=== PATIENT | male | born 1980 ===

== ENCOUNTER 2021-06-19 14:42 | Emergency (ER) | payer SELFPAY ==
[2021-06-19 15:05] VITALS: BP 189/95; PULSE 93; RESP 18; TEMP 36.1; O2SAT 96; BMI 35.0
--- NOTE | 2021-06-19 16:27 | ED_ITS ---
HPI - Abdominal Pain General: Chief Complaint: Abdominal Pain Stated Complaint: Severe ABD Pain Time Seen by Provider: 06/19/21 16:26 History of Present Illness: Mr. Cruz is a 41-year-old gentleman without significant past medical history presents to the emergency department due to ab dominal pain. Symptoms of been ongoing since last night. He endorses lower abdominal cramping which has occurred intermittently though at baseline has not gone completely away for pain. When cramping he has severe intensity pain. He notes a feeling of incomplete emptying though has had bowel movements. Denies urinary symptoms. Has had nausea but no vomiting. Has had subjective chills. No other focal infectious symptoms. Denies frequent episodes of similar in the past. No other specific changes in health, exacerbating, or alleviating factors identified. Onset (ago): hour(s) Pain Consistency: constant Severity: moderate Quality: cramping Exacerbating factors: eating Associated Symptoms: Reports nausea Review of Systems General: Reports: 10 or more systems reviewed and unremarkable except in HPI and below GI: Reports: nausea PFSH ED PFSH: Medical History (Updated 06/19/21 @ 19:04 by Tacos Riley MD) No significant past medical history Surgical History (Updated 06/19/21 @ 18:04 by Tacos Riley MD) No significant past surgical history Social History (Updated 06/19/21 @ 18:04 by Tacos Riley MD) Alcohol intake: current Alcohol intake frequency: few times a month Physical Exam Const: COMMON NORMALS: alert GENERAL APPEARANCE: cooperative and well developed HENMT: COMMON NORMALS: normocephalic and atraumatic HEAD & SCALP: normocephalic and atraumatic THROAT: posterior oropharynx normal Eye: COMMON NORMALS: conjunctivae normal CONJUNCTIVA: Yes conjunctivae normal SCLERA: sclerae normal Neck/C-Spine: COMMON NORMALS: supple GENERAL: Yes trachea midline Resp: COMMON NORMALS: normal respiratory effort EFFORT & INSPECTION: Yes able to speak in complete sentences Cardio: COMMON NORMALS: regular rate and regular rhythm RATE: regular rate RHYTHM: regular rhythm GI: COMMON NORMALS: Soft to palpation PALPATION: Yes Soft to palpation, Yes Tenderness to palpation present (GI), No Guarding due to palpation present (GI) and No Rigid due to palpation PERCUSSION: normal to percussion Extremity: GENERAL: Yes normal exam except as noted and No edema Neuro: COMMON NORMALS: moves all extremities SENSORIUM/ORIENTATION: Yes alert and No Orientation impaired Psych: COMMON NORMALS: mental status grossly normal and Normal thought process present THOUGHT PROCESS: Normal thought process present Course ED course: - Patient was seen and evaluated by me at bedside - Patient placed on cardiac monitors, IV access obtained - Initial evaluation notable for exam as above - Labs personally interpreted by me -Symptom treatment ordered - Labs notable for leukocytosis and hemoconcentration with evidence of dehydration, lipase is elevated. - Imaging notable for diverticulitis. Antibiotics ordered. - Upon serial reexamination after treatment the patient was improved with symptom treatment. - Based on patient history, evaluation, and testing as interpreted the most likely cause of the patient's condition is diverticulitis - The results of ED evaluation were discussed with the patient including disposition options. I offered the patient admission versus trial of treatment at home with strict return precautions. Patient desires trial at home. I discussed prescriptions and/or symptomatic cares (if applicable) including appropriate and responsible use, followup plan, and return precautions. The patient verbalized understanding and felt safe for discharge. - Patient discharged in satisfactory condition. Note: Click bubbles or prepopulated oliver in note writing are used for assistance with data collection and billing and are inherently more limited than narrative and other text portions of this note. Please use narrative for additional clinic al history and defer to narrative/free test for any case of contradictory information. If information appears in only free text or click bubble it should be considered present or absent as reported. Please contact note typewriter repairer for clarifications of clinical information or contradictory information. MDM is a brief summary, contradictory or erroneous seeming information should be clarified and full note should be reviewed. Vital Signs: Vital signs: Vital Signs Temperature 97.0 F L 06/19/21 15:05 Pulse Rate 100 06/19/21 19:16 Respiratory Rate 20 H 06/19/21 19:16 Blood Pressure 157/103 06/19/21 19:16 Pulse Oximetry 98 06/19/21 19:16 MDM - Abdominal Pain Medical Decision Making 41-year-old male presenting with abdominal pain. Found to have diverticulitis and dehydration. Improved with symptom treatment and able to tolerate p.o. intake. Offered admission versus outpatient treatment, patient elected for outpatient treatment with strict return precautions. Satisfactory for discharge. Medical Records I reviewed the patient's medical records. Lab Data I reviewed the patient's lab results. : 06/19/21 16:35 06/19/21 16:35 Labs/Radiology: Radiology Impressions Abdomen/Pelvis CT 06/19/21 16:34 IMPRESSION: Diffuse sigmoid colon wall thickening suggestive of a colitis or long segment diverticulitis. Laboratory Results WBC 18.7 10^3/uL (4.0-10.0) H 06/19/21 16:35 RBC 5.69 10^6/uL (4.1-5.3) H 06/19/21 16:35 Hgb 17.2 g/dL (11.7-16.6) H 06/19/21 16:35 Hct 49.0 % (42.0-52.0) 06/19/21 16:35 MCV 86.1 fl (80-94) 06/19/21 16:35 MCH 30.2 pg (28.0-34.0) 06/19/21 16:35 MCHC 35.1 g/dL (30.0-36.0) 06/19/21 16:35 RDW 12.4 % (12.1-15.1) 06/19/21 16:35 Plt Count 228 10^3/cmm (130-400) 06/19/21 16:35 MPV 10.2 fL (7.4-10.4) 06/19/21 16:35 Neut % (Auto) 90.0 % 06/19/21 16:35 Lymph % (Auto) 5.4 % 06/19/21 16:35 [place] % (Auto) 3.8 % 06/19/21 16:35 Eos % (Auto) 0.1 % 06/19/21 16:35 Baso % (Auto) 0.2 % 06/19/21 16:35 Neut # (Auto) 16.80 10^3/uL (1.8-7.7) H 06/19/21 16:35 Lymph # (Auto) 1.0 10^3/uL (0.8-4.8) 06/19/21 16:35 [place] # (Auto) 0.7 10^3/uL (0.2-0.9) 06/19/21 16:35 Eos # (Auto) 0.0 10^3/uL (0.0-0.8) 06/19/21 16:35 Baso # (Auto) 0.0 10^3/uL (0.0-0.1) 06/19/21 16:35 Nucleated RBC % (auto) 0 % 06/19/21 16:35 Nucleated RBCs # 0.0 /100WBC 06/19/21 16:35 Sodium 132 mmol/L (136-145) L 06/19/21 16:35 Potassium 3.9 mmol/L (3.5-5.1) 06/19/21 16:35 Chloride 97 mmol/L (98-107) L 06/19/21 16:35 Carbon Dioxide 24 mmol/L (22-29) 06/19/21 16:35 Anion Gap 14.9 (5-19) 06/19/21 16:35 BUN 11 mg/dL (6-20) 06/19/21 16:35 Creatinine 0.6 mg/dL (0.7-1.2) L 06/19/21 16:35 GFR Calculation 149.2 mL/min (90-130) H 06/19/21 16:35 Glucose 119 mg/dL (65-115) H 06/19/21 16:35 Calculated Osmolality 275 mOsm/kg (285-295) L 06/19/21 16:35 Lactic Acid 0.8 mmol/L (0.5-2.2) 06/19/21 18:22 Calcium 10.2 mg/dL (8.5-10.5) 06/19/21 16:35 Total Bilirubin 0.6 mg/dL (0.15-1.2) 06/19/21 16:35 AST 15 U/L (0-40) 06/19/21 16:35 ALT 10 U/L (0-41) 06/19/21 16:35 Alkaline Phosphatase 70 IU/L (40-130) 06/19/21 16:35 Total Protein 7.9 g/dL (6.6-8.7) 06/19/21 16:35 Albumin 4.5 g/dL (3.5-5.2) 06/19/21 16:35 Globulin 3.4 g/dL (1.3-4.6) 06/19/21 16:35 Lipase 460 U/L (13-60) H 06/19/21 16:35 Urine Color Colorless (Yellow) 06/19/21 17:25 Urine Appearance Clear (CLEAR) 06/19/21 17:25 Urine pH 6 (5-7) 06/19/21 17:25 Ur Specific [place] 1.010 (1.005-1.030) 06/19/21 17:25 Urine Protein Neg (Negative) 06/19/21 17:25 Urine Glucose (UA) Norm (Normal) 06/19/21 17:25 Urine Ketones 1+ (Negative) H 06/19/21 17:25 Urine Blood Neg (Negative) 06/19/21 17:25 Urine Nitrate Negative (Negative) 06/19/21 17:25 Urine Bilirubin Neg (Negative) 06/19/21 17:25 Urine Urobilinogen Norm mg/dL (Negative) 06/19/21 17:25 Ur Leukocyte Esterase Negative (Negative) 06/19/21 17:25 Discharge Plan Discharge Patient Disposition: Home Clinical Impression: Diverticulitis, Elevated lipase, Dehydration, Leukocytosis Condition: Stable Prescriptions: New Cipro 500 mg tablet 500 mg PO BID Qty: 14 0RF metronidazole 500 mg tablet 500 mg PO Q8H 7 Days Qty: 21 0RF oxycodone 5 mg tablet 5 mg PO Q6H PRN (Reason: pain) Qty: 10 0RF Discharge Orders: Discharge ED (Routine); Ordered 06/19/21 Ordered By: Tacos Riley Discharge Diet: Advance as tolerated and Clear Liquid Discharge Activity: Increase activity as tolerated Patient Instructions: Diverticulitis (ED), Diverticulitis Diet (ED), Opioid Safety Activity Restrictions/Additional Instructions: Thank you for visiting the emergency department. You were seen evaluated for abdominal pain. You were found to have diverticulitis which is infection of the colon. This will be treated with antibiotics. Additionally he will be given nausea medication as well as pain medication. You may use Tylenol and ibuprofen. Please follow-up with your primary care provider. Please establish with a primary care provider if you do not currently have 1. Please return to the emergency department for worsening symptoms, uncontrolled symptoms despite medications, fevers, or anything else that you are concerned about and feel needs emergency department evaluation. Coding Level of Care Code ED Venetian Blind Cleaner for Joshua Fwd Exam Comprehensive
--- NOTE | 2021-06-19 16:34 | CTR_ITS ---
PROCEDURE INFORMATION: Exam: CT Abdomen And Pelvis With Contrast Exam date and time: 06/19/2021 5:00 PM Age: 41 years old Clinical indication: Acute; Patient HX: Suprapubic abdominal pain with nausea; Additional info: Abdominal pain, lower bilateral, ? obstruction TECHNIQUE: Imaging protocol: Computed tomography of the abdomen and pelvis with contrast. Radiation optimization: All CT scans at this facility use at least one of these dose optimization techniques: automated exposure control; mA and/or kV adjustment per patient size (includes targeted exams where dose is matched to clinical indication); or iterative reconstruction. Contrast material: OMNI 350; Contrast volume: 100 ml; Contrast route: INTRAVENOUS (IV); COMPARISON: No relevant prior studies available. RADIATION DOSE METRICS: Total DLP (mGy-cm): 1987.31 FINDINGS: Liver: Normal. No mass. Gallbladder and bile ducts: Normal. No calcified stones. No ductal dilation. Pancreas: Normal. No ductal dilation. Spleen: Normal. No splenomegaly. Adrenal glands: Normal. No mass. Kidneys and ureters: Normal. No hydronephrosis. Stomach and bowel: Diffuse sigmoid colon wall thickening with surrounding edema suggestive of a colitis or long segment diverticulitis. Appendix: No evidence of appendicitis. Intraperitoneal space: Unremarkable. No free air. No significant fluid collection. Vasculature: Unremarkable. No abdominal aortic aneurysm. Lymph nodes: Unremarkable. No enlarged lymph nodes. Urinary bladder: Unremarkable as visualized. Reproductive: Unremarkable as visualized. Bones/joints: Unremarkable. No acute fracture. Soft tissues: Unremarkable. CT/CT abdomen pelvis w con* [id number] IMPRESSION: Diffuse sigmoid colon wall thickening suggestive of a colitis or long segment diverticulitis.
[2021-06-19 16:41] VITALS: RESP 18; O2SAT 98
[2021-06-19] MEDS: morphine 4 mg/mL SDV 1 mL IM (16:41)
[2021-06-19 16:43] LABS: Basophils % 0.2 %; Eosinophils % 0.1 %; Hemoglobin 17.2 g/dL (11.7-16.6); Lymphocytes % 5.4 %; Mean Corpuscular HGB Conc 35.1 g/dL (30.0-36.0); Mean Corpuscular Hemoglobin 30.2 pg (28.0-34.0); Mean Corpuscular Volume 86.1 fl (80-94); Mean Platelet Volume 10.2 fL (7.4-10.4); Monocytes # 0.7 10^3/uL (0.2-0.9); Monocytes % 3.8 %; Nucleated Red Blood Cells % 0 %; Platelet Count 228 10^3/cmm (130-400); Red Blood Count 5.69 10^6/uL (4.1-5.3); Red Cell Distribution Width 12.4 % (12.1-15.1); White Blood Count 18.7 10^3/uL (4.0-10.0)
[2021-06-19 17:07] VITALS: BP 161/81; PULSE 100; RESP 22; O2SAT 99
[2021-06-19 17:09] LABS: Alanine Aminotransferase 10 U/L (0-41); Albumin Level 4.5 g/dL (3.5-5.2); Alkaline Phosphatase 70 IU/L (40-130); Anion Gap 14.9 (5-19); Aspartate Amino Transferase 15 U/L (0-40); Blood Urea Nitrogen 11 mg/dL (6-20); Calcium 10.2 mg/dL (8.5-10.5); Carbon Dioxide 24 mmol/L (22-29); Chloride 97 mmol/L (98-107); Globulin 3.4 g/dL (1.3-4.6); Glomerular Filtration Rate 149.2 mL/min (90-130); Glucose 119 mg/dL (65-115); Osmolality Calculated 275 mOsm/kg (285-295); Potassium 3.9 mmol/L (3.5-5.1); Sodium 132 mmol/L (136-145); Total Bilirubin 0.6 mg/dL (0.15-1.2); Total Protein 7.9 g/dL (6.6-8.7)
[2021-06-19 17:17] LABS: Lipase 460 U/L (13-60)
[2021-06-19 17:30] VITALS: BP 155/79; PULSE 79; RESP 18; O2SAT 96
[2021-06-19 17:51] LABS: Add Urine Microscopic? NO; Charge for UA Resulting for Rev
[2021-06-19 17:54] LABS: Bilirubin Urine Neg (Negative); Blood Urine Neg (Negative); Glucose Urine UA Norm (Normal); Ketones Urine 1+ (Negative); Leukocyte Esterase Urine Negative (Negative); Nitrate Urine Negative (Negative); Protein Urine Neg (Negative); Urine Appearance Clear (CLEAR); Urine Color Colorless (Yellow); Urobilinogen Urine Norm (Negative); pH Urine 6 (5-7)
[2021-06-19] MEDS: sodium chloride 0.9% 1,000 ML 999 ML IV (18:07)
[2021-06-19 18:15] VITALS: RESP 18; O2SAT 96
[2021-06-19] MEDS: morphine 4 mg/mL SDV 1 mL IVP (18:15)
[2021-06-19 18:47] LABS: Lactic Sepsis W/Reflex 0.8 mmol/L (0.5-2.2)
[2021-06-19] MEDS: ciprofloxacin 500 mg Tablet PO (19:07)
[2021-06-19] MEDS: metroNIDAZOLE 500 MG Tablet PO (19:07)
[2021-06-19 19:16] VITALS: BP 157/103; PULSE 100; RESP 20; O2SAT 98
== END 2021-06-19 19:17 | disposition home or self-care (01) ==
PROVIDERS: Emergency Provider Emergency Medicine
DX: K57.90 Diverticulosis of intestine, part unspecified, without perforation or abscess without bleeding (principal); E86.0 Dehydration; D72.829 Elevated white blood cell count, unspecified
CPT/HCPCS: 74177; 80053; 81003; 83605; 83690; 85025; 96361; 96374; 99284; J2270; J7030; Q9967

== ENCOUNTER 2023-03-04 17:16 | Emergency (ER) | payer SELFPAY ==
[2023-03-04] VITALS (33 sets, daily range): BP systolic 94–160; BP diastolic 56–107; PULSE 85–153; RESP 11–33; TEMP 36.5; O2SAT 68–100; BMI 37.8
--- NOTE | 2023-03-04 17:22 | XRR_ITS ---
PROCEDURE INFORMATION: Exam: XR Chest Exam date and time: 03/04/2023 5:32 PM Age: 42 years old Clinical indication: Shortness of breath; Additional info: SOB TECHNIQUE: Imaging protocol: Radiologic exam of the chest. Views: 1 view. COMPARISON: CT abdomen pelvis w con* [id number] 06/19/2021 5:00 PM FINDINGS: Lungs: Unremarkable. No consolidation. Pleural spaces: Unremarkable. No pleural effusion. No pneumothorax. Heart/Mediastinum: Unremarkable. No cardiomegaly. Bones/joints: Unremarkable. XR/XR chest 1V portable [id number] IMPRESSION: No acute findings.
--- NOTE | 2023-03-04 17:40 | ED_ITS ---
HPI - Allergic Reaction 2 General: Chief complaint: Allergic Reaction Stated complaint: Sob Time Seen by Provider: 03/04/23 17:21 Source: patient Mode of arrival: ambulatory Limitations: no limitations History of Present Illness: HPI narrative: 42-year-old male states he smoked cigare ttes today at noon he states that since then he has had feelings like his throat is coming off and increasing shortness of breath. Does have muffled voice here states that if he turns his head left or right he feels like he has a very hard time breathing. He denies any chest pain denies any cough or fever. Associated symptoms: Deny abdominal pain, nausea or vomiting Review of Systems 2 Const: Denies: fever(s), chills, body aches or change in appetite ENMT: Reports: throat pain; Denies: dental pain Card: Denies: chest pain Resp: Reports: dyspnea GI: Denies: abdominal pain, nausea, vomiting or diarrhea Musc: Denies: neck pain or back pain Skin/Breast: Denies: rash Neuro: Denies: headache(s) PFSH ED 2 PFSH: Medical History No significant past medical history Surgical History No significant past surgical history Social History Alcohol intake: current Alcohol intake frequency: few times a month Physical Exam 2 Const: COMMON NORMALS: patient oriented x3 GENERAL APPEARANCE: in distress HENMT: COMMON NORMALS: normocephalic and atraumatic HEAD & SCALP: n ormocephalic and atraumatic OTHER: Bilateral swelling posterior oropharynx with slight dyspnea and muffled voice Neck/C-Spine: COMMON NORMALS: full ROM and supple Chest: COMMONS NORMALS: normal inspection of the chest Resp: COMMON NORMALS: normal respiratory effort, No retractions, No use of accessory muscles and clear to auscultation bilaterally AUSCULTATION: clear to auscultation bilaterally Cardio: COMMON NORMALS: regular rate, regular rhythm and No murmurs present (Cardio) RATE: regular rate RHYTHM: regular rhythm Extremity: COMMON NORMALS: normal to inspection and full ROM Neuro: COMMON NORMALS: patient oriented x3, moves all extremities and no focal motor deficits Psych: COMMON NORMALS: mental status grossly normal, Normal thought process present and cooperative THOUGHT PROCESS: Normal thought process present Skin: COMMON NORMALS: no rashes or lesions noted and no wounds GENERAL SKIN EXAM: no rashes or lesions noted Procedures Chest Tube Chest Tube 1: Chest Tube Location: right, anterior axillary line and fifth interspace Size of Tube (cm): 24 Chest Tube Prep: Yes betadine prep and sterile drapes applied Local Anesthetic: lidocaine 1% Amount of anesthesia used (mL): 8 Incision Made With: #10 blade Post Procedure: sutured to skin and sterile dressing applied Tube Drainage: none Post Procedure CXR?: Yes Patient Tolerated Procedure: Yes Intubation Time out performed: Yes sedative: Etomidate Mg Given: 20 paralytic: Succinylcholine Mg Given: 150 Laryngoscope: Wilbur Intubation Complications: unable to intubate Additional Comments: Unable animate patient due to mass epiglottis not able to visualize. Patient desaturated to 50% did place an LMA down was able to bag him back up to 100% an incision was made for a possible chronic is a very large neck and did not attempt to fully cry because he did came back up to 100% Course 2 Reevaluation(s): Reevaluation #1: Was not able to intubate patient due to the epiglottic mass. Was able to ventilate the patient with an LMA spoke to Dr. Rome along with anesthesia will take patient to the operating room for surgical airway Time: 20:07 Vital Signs: Vital signs: Vital Signs Temperature 97.7 F 03/04/23 17:19 Pulse Rate 108 H 03/04/23 20:31 Respiratory Rate 29 H 03/04/23 22:28 Blood Pressure 113/83 03/04/23 20:31 Pulse Oximetry 100 03/04/23 20:31 Oxygen Delivery Me thod Room Air 03/04/23 19:30 Fraction of Inspir ed Oxygen 100 03/04/23 22:28 MDM - Allergic Reaction Medical Decision Making Patient originally presented here with throat pain difficulty swallowing shortness of breath. Patient CT did show a likely retropharyngeal abscess attempted to intubate him in the ER was not able to visualize the cords into him having to place an LMA and bag valve ventilated him through the LMA patient was taken to the OR for surgical tracheostomy. When patient arrived back from the operating room he had had a right-sided pneumothorax did place a chest tube. I did speak to Magana will transfer there for higher level of care for ENT and ICU Availibilty Medical Records I reviewed the patient's medical records. Lab Data I reviewed the patient's lab results. 03/04/23 19:37 03/04/23 19:[address] 03/04/23 18:23 IMPRESSION: 1. 2.9 cm low-density masslike enlargement to the right aspect of the epiglottis with effacement of the right vallecula and involvement of the right pharyngeal wall, finding may reflect an underlying malignant or infectious process, correlation with direct visualization advised. 2. Small to moderate amount of nonlocalized edema in the retropharyngeal space, may reflect an infectious process. 3. Diffuse subcutaneous edema throughout the neck, nonspecific. Laboratory Results WBC 15.81 10^3/uL (3.29-11.43) H 03/04/23 19:37 RBC 5.61 10^6/uL (3.85-5.65) 03/04/23 19:37 Hgb 16.80 g/dL (11.27-16.99) 03/04/23 19:37 Hct 49.3 % (37-53) 03/04/23 19:37 MCV 87.9 fl (82-101) 03/04/23 19:37 MCH 29.9 pg (27-33) 03/04/23 19:37 MCHC 34.1 g/dL (30-55) 03/04/23 19:37 RDW 12.1 % (12.1-15.1) 03/04/23 19:37 Plt Count 240 10^3/cmm (157-399) 03/04/23 19:37 MPV 10.3 fL (7.4-10.4) 03/04/23 19:37 Neut % (Auto) 87.6 % 03/04/23 19:37 Lymph % (Auto) 9.0 % 03/04/23 19:37 [place] % (Auto) 2.6 % 03/04/23 19:37 Eos % (Auto) 0.1 % 03/04/23 19:37 Baso % (Auto) 0.2 % 03/04/23 19:37 Neut # (Auto) 13.85 10^3/uL (1.8-7.7) H 03/04/23 19:37 Lymph # (Auto) 1.4 10^3/uL (0.8-4.8) 03/04/23 19:37 Young # (Auto) 0.4 10^3/uL (0.2-0.9) 03/04/23 19:37 Eos # (Auto) 0.0 10^3/uL (0.0-0.8) 03/04/23 19:37 Baso # (Auto) 0.0 10^3/uL (0.0-0.1) 03/04/23 19:37 Nucleated RBC % (auto) 0 % 03/04/23 19:37 Nucleated RBCs # 0.0 /100WBC 03/04/23 19:37 Sodium 137 mmol/L (136-145) 03/04/23 19:37 Potassium 4.4 mmol/L (3.5-5.1) 03/04/23 19:37 Chloride 102 mmol/L (98-107) 03/04/23 19:37 Carbon Dioxide 24 mmol/L (22-29) 03/04/23 19:37 Anion Gap 15.4 (5-19) 03/04/23 19:37 BUN 14 mg/dL (6-20) 03/04/23 19:37 Creatinine 0.8 mg/dL (0.7-1.2) 03/04/23 19:37 GFR Calculation 106.5 mL/min (90-130) 03/04/23 19:37 Glucose 148 mg/dL (65-115) H 03/04/23 19:37 Calculated Osmolality 287 mOsm/kg (285-295) 03/04/23 19:37 Calcium 8.8 mg/dL (8.5-10.5) 03/04/23 19:37 Total Bilirubin 0.5 mg/dL (0.15-1.2) 03/04/23 19:37 AST 20 U/L (0-40) 03/04/23 19:37 ALT 13 U/L (0-41) 03/04/23 19:37 Alkaline Phosphatase 66 U/L (40-130) 03/04/23 19:37 Total Protein 7.2 g/dL (6.6-8.7) 03/04/23 19:37 Albumin 4.1 g/dL (3.5-5.2) 03/04/23 19:37 Globulin 3.1 g/dL (1.3-4.6) 03/04/23 19:37 XR interpretation done by ED provider, pending radiology final review Critical Care Time 2 Critical Care Time: Critical Care Time: Yes Total Critical Care Time: 55 Attestation: The high probability of a clinically significant, sudden or life threatening deterioration of the patient's resp system(s) required my full and direct attention, intervention and personal management. The critical care time is as shown. This time is in addition to time spent performing any reported procedures but includes the following: [x] Data and vital sign review and interpretation [x] Patient assessment, examination and intervention [x] Documentation [x] Medication orders and management Discharge Plan Discharge Patient Disposition: Xfer Short-Term Hosp Clinical Impression: Abscess, retropharyngeal Condition: Stable Coding Level of Care Code ED Mixing Machine Tender Cork Rod for Joshua Cantu
[2023-03-04] MEDS: EPINEPHrine 1 mg/mL INJ 0.5 MG IM (17:43)
[2023-03-04] MEDS: diphenhydrAMINE 50 mg/mL SDV 1mL IVP (17:44)
[2023-03-04] MEDS: methylPREDNISolone sod succ 125 mg/2 mL INJ IVP (17:44)
[2023-03-04] MEDS: racepinephrine 0.5 mL Neb INHALATION (17:59)
--- NOTE | 2023-03-04 18:23 | CTR_ITS ---
PROCEDURE INFORMATION: Exam: CT Neck With Contrast Exam date and time: 03/04/2023 6:39 PM Age: 42 years old Clinical indication: Dyspnea / difficulty breathing; Additional info: Difficult swallowing TECHNIQUE: Imaging protocol: Computed tomography of the neck with contrast. Radiation optimization: All CT scans at this facility use at least one of these dose optimization techniques: automated exposure control; mA and/or kV adjustment per patient size (includes targeted exams where dose is matched to clinical indication); or iterative reconstruction. Contrast material: OMNI 350; Contrast volume: 100 ml; Contrast route: INTRAVENOUS (IV); COMPARISON: CR (CHEST, ) 03/04/2023 5:32 PM RADIATION DOSE METRICS: Total DLP (mGy-cm): 298 FINDINGS: Pharynx: 2.9 cm low-density masslike enlargement to the right aspect of the epiglottis with effacement of the right vallecula and involvement of the right pharyngeal wall, finding may reflect an underlying malignant or infectious process, correlation with direct visualization advised. Larynx: Unremarkable. Epiglottis is normal. Prevertebral and retropharyngeal spaces: Small to moderate amount of nonlocalized edema in the retropharyngeal space, may reflect an infectious process. Salivary glands: Normal. Glands are normal in size. Thyroid: Normal. No enlarged or calcified nodules. Lymph nodes: Unremarkable. No lymphadenopathy. Trachea: Visualized trachea is unremarkable. Lungs: Unremarkable as visualized. Bones/joints: Unremarkable. No acute fracture. Soft tissues: Diffuse subcutaneous edema throughout the neck, nonspecific. CT/CT neck w con* [id number] IMPRESSION: 1. 2.9 cm low-density masslike enlargement to the right aspect of the epiglottis with effacement of the right vallecula and involvement of the right pharyngeal wall, finding may reflect an underlying malignant or infectious process, correlation with direct visualization advised. 2. Small to moderate amount of nonlocalized edema in the retropharyngeal space, may reflect an infectious process. 3. Diffuse subcutaneous edema throughout the neck, nonspecific.
[2023-03-04] MEDS: iohexol 350 mg/mL 500 mL Btl (per mL) IV (18:30)
[2023-03-04] MEDS: LORazepam 2 mg/mL INJ 10 mL MDV 1 MG IVP (18:38)
--- NOTE | 2023-03-04 18:49 | PC.NURSE ---
REPORT TAKEN FROM VELASQUEZ PRICE AT THIS TIME.
[2023-03-04] MEDS: dexamethasone 10 mg/mL INJ IVP (19:01)
[2023-03-04 19:44] LABS: Basophils % 0.2 %; Eosinophils % 0.1 %; Hematocrit 49.3 % (37-53); Lymphocytes # 1.4 10^3/uL (0.8-4.8); Mean Corpuscular HGB Conc 34.1 g/dL (30-55); Mean Corpuscular Hemoglobin 29.9 pg (27-33); Mean Corpuscular Volume 87.9 fl (82-101); Mean Platelet Volume 10.3 fL (7.4-10.4); Monocytes # 0.4 10^3/uL (0.2-0.9); Monocytes % 2.6 %; Neutrophils # 13.85 10^3/uL (1.8-7.7); Neutrophils % 87.6 %; Nucleated Red Blood Cells % 0 %; Platelet Count 240 10^3/cmm (157-399); Red Blood Count 5.61 10^6/uL (3.85-5.65); Red Cell Distribution Width 12.1 % (12.1-15.1); White Blood Count 15.81 10^3/uL (3.29-11.43)
[2023-03-04] MEDS: etomidate 2 mg/mL INJ SDV 10 mL 20 MG IVP (19:47)
[2023-03-04] MEDS: succinylcholine 20 mg/mL SDV 10mL 150 MG IVP (19:48)
[2023-03-04 20:14] LABS: Alanine Aminotransferase 13 U/L (0-41); Albumin Level 4.1 g/dL (3.5-5.2); Alkaline Phosphatase 66 U/L (40-130); Aspartate Amino Transferase 20 U/L (0-40); Blood Urea Nitrogen 14 mg/dL (6-20); Calcium 8.8 mg/dL (8.5-10.5); Carbon Dioxide 24 mmol/L (22-29); Chloride 102 mmol/L (98-107); Globulin 3.1 g/dL (1.3-4.6); Glomerular Filtration Rate 106.5 mL/min (90-130); Glucose 148 mg/dL (65-115); Osmolality Calculated 287 mOsm/kg (285-295); Sodium 137 mmol/L (136-145); Total Bilirubin 0.5 mg/dL (0.15-1.2); Total Protein 7.2 g/dL (6.6-8.7)
[2023-03-04] MEDS: sodium chloride 0.9% 1,000 ML 999 ML IV (20:14)
[2023-03-04] MEDS: clindamycin 900 MG/50 ML PREMIX 100 MG IV (20:14)
[2023-03-04] MEDS: propofol 10 mg/mL SDV 20 mL 60 MG IVP ×2 (20:15→20:29)
[2023-03-04 20:16] LABS: Anion Gap 15.4 (5-19); Potassium 4.4 mmol/L (3.5-5.1)
--- NOTE | 2023-03-04 20:28 | PM.OP ---
Operative Report Date of procedure: March 04, 2023 Pre-op diagnosis: Airway obstruction Surgeon: Rhys Burnham MD
--- NOTE | 2023-03-04 20:29 | P.CONIM_ITS ---
Providers/Reason For Consult 2 Consulting Physician/Specialty*: Dr. Rhys Burnham MD Otolaryngology, Head & Neck Surgery Reason for Consult*: Airway obstruction Requesting Physician: Dr. Cherise MD Primary Care Provider: None known History of Present Illness History of Present Illness Niko Cruz is a 42 year old male who c/o a muffled voice since noon today. The patient had an attempt at intubation and a surgical airway that failed and is now being ventilated with an LMA - no other history is available or obtainable/there is no family present. Review of Systems 2 General: Reports: 10 or more systems reviewed and unremarkable except in HPI and below Const: Reports: other (No symptoms known.) Eyes: Reports: other (No h/o c/po) ENMT: Reports: other (Horizontal incision in the anterior neck just superior to the sternal notch) Medications/Allergies Home Medications Medication Instructions Recorded Confirmed Last Taken Type ciprofloxacin HCl 500 mg tablet 500 mg PO BID #14 tabs 06/19/21 Unknown Rx (Cipro) oxycodone 5 mg tablet 5 mg PO Q6H PRN pain #10 tabs 06/19/21 Unknown Rx Allergies Allergy/AdvReac Type Severity Reaction Status Date / Time No Known Allergies Allergy Verified 03/04/23 17:19 Current Medications Generic Name Dose Route Start Last Admin Trade Name Freq PRN Reason Stop Dose Admin Sodium Chloride 1,000 mls @ 999 mls/hr 03/04/23 20:04 03/04/23 20:14 Sodium Chloride 0.9% IV 03/04/23 21:04 999 mls/hr .Q1H1M ONE Administration PFSH Acute 2 PFSH: Medical History No significant past medical history Surgical History No significant past surgical history Social History Alcohol intake: current Alcohol intake frequency: few times a month Vitals/I&O/Wt Last Vital Signs Temp 97.7 F 03/04/23 17:19 Pulse 102 H 03/04/23 20:10 Resp 18 03/04/23 20:10 BP 141/80 03/04/23 20:10 Pulse Ox 99 03/04/23 20:10 O2 Del Method Room Air 03/04/23 19:30 Weight last 48 hrs Weight 99.79 kg Physical Exam 2 Const: COMMON NORMALS: well nourished EXAM LIMITATIONS: other limitations (The patient has an LMA in place and is unable to answer questions.) HENMT: COMMON NORMALS: normocephalic, atraumatic and Normal external nose present HEAD & SCALP: normocephalic and atraumatic FACE & SINUS: normal facial exam NOSE: Normal external nose present Neck/C-Spine: COMMON NORMALS: no lymphadenopathy GENERAL: Yes trachea midline THYROID: other (Horizontal incision present in the anterior neck.) Chest: COMMONS NORMALS: normal inspection of the chest Resp: COMMON NORMALS: clear to auscultation bilaterally AUSCULTATION: clear to auscultation bilaterally Cardio: COMMON NORMALS: regular rate, regular rhythm and No murmurs present (Cardio) RATE: regular rate RHYTHM: regular rhythm GI: COMMON NORMALS: Normal to inspection, nondistended, normoactive bowel sounds present Data 03/04/23 19:37 03/04/23 19:37 A&P Assessment and plan (1) Abscess, retropharyngeal: Impression: Airway obstruction - possibly from a deep space neck infection/phlegmon Plan: - Surgical tracheotomy with possible direct laryngoscopy with possible biopsy/biopsies under anesthesia. Consult Attestations 2 Medical Necessity Statement: I was consulted to assist in airway management Coding Level of Care Code Acute Code for Chg Fwd Diagnoses Abscess, retropharyngeal J39.0
--- NOTE | 2023-03-04 21:29 | XRR_ITS ---
PROCEDURE INFORMATION: Exam: XR Chest Exam date and time: 03/04/2023 9:39 PM Age: 42 years old Clinical indication: Device placement; Tracheostomy placement or adjustment; Additional info: Intraoperative tracheostomy placement TECHNIQUE: Imaging protocol: Radiologic exam of the chest. Views: 1 view. COMPARISON: CR (CHEST, ) 03/04/2023 5:32 PM FINDINGS: Tubes, catheters and devices: Tracheostomy tube. Lungs: Patchy bilateral right and left upper lobe airspace opacities. Pleural spaces: Right apical pneumothorax with 17 mm of separation between the lung and pleura. Heart/Mediastinum: Cardiomegaly. Bones/joints: Unremarkable. XR/XR chest 1V portable [id number] IMPRESSION: 1. Right apical pneumothorax with 17 mm of separation between the lung and pleura. 2. Patchy bilateral right and left upper lobe airspace opacities. 3. Cardiomegaly. 4. Tracheostomy tube.
--- NOTE | 2023-03-04 21:33 | PC.NURSE ---
pt transport to surgery surgery team came to transport pt at approx 2039. resp accompanied them.
--- NOTE | 2023-03-04 22:02 | XRR_ITS ---
PROCEDURE INFORMATION: Exam: XR Chest Exam date and time: 03/04/2023 10:07 PM Age: 42 years old Clinical indication: Other: Pneumothorax; Additional info: SOB TECHNIQUE: Imaging protocol: Radiologic exam of the chest. Views: 1 view. COMPARISON: CR (CHEST, ) 03/04/2023 9:39 PM FINDINGS: Tubes, catheters and devices: Tracheostomy tube somewhat visualized. Lungs: Bilateral upper lobe airspace opacifications. Pleural spaces: Right-sided pneumothorax, somewhat increased compared to prior exam, now with 3.4 cm separation between the lung and pleura. Heart/Mediastinum: Cardiomegaly. Bones/joints: Unremarkable. XR/XR chest 1V portable [id number] IMPRESSION: 1. Right-sided pneumothorax, somewhat increased compared to prior exam, now with 3.4 cm separation between the lung and pleura. 2. Tracheostomy tube somewhat visualized. 3. Cardiomegaly. 4. Bilateral upper lobe airspace opacifications.
--- NOTE | 2023-03-04 22:03 | PM.OP ---
Operative Report Date of procedure: March 04, 2023 Pre-op diagnosis: Airway obstruction Post-op diagnosis: same Post-op diagnosis: - Upper airway obstruction: Significant swelling of the posterior pharngeal wall, polypoid swelling in the oralpharnx, visualization limited - Prior attempt at tracheotomy with open incision in the anterior, inferior neck Post-op findings: Same Procedure done: - Completion tracheotomy - Direct laryngoscopy Implants: None Specimens removed/disposition: None Pathology: none sent Surgeon: Rhys Burnham Surgeon: Rhys Burnham MD Anesthesia: General Estimated blood loss (mL): 100 IV fluids (mL): 800 Complications: None Findings: - Prior incision of the anterior neck with moderate bleeding - Significant swelling of the posterior pharyngeal wall with polypoid swelling in the oralpharyn. Visualization extremely limited due to swelling and blood - O/W normal anterior neck exam Condition: stable Disposition: other ([facility] [place] ER for transport) Brief History: 42 yo male who presented to the [facility] ER with a c/o a muffled voice and increasing difficulty breathing. I was consulted to assist with airway management. Procedure: The patient was identified in the ER and was taken to the OR and was placed on the operating room table in the supine position. The patient had an LMA in place. The anterior neck was prepped with betadyne and retractors were placed in the wound that had been made in the ER. There was copious bleeding present that was controlled with bipolar cautery. The airway was low in the neck, but the soft tissues were dissected off of the anterior trachea and an incision was made in the trachea at about the 2nd/3rd tracheal ring interspace. Once this incision was made, the patient oxygen saturations dropped and a #6 Endotracheal tube was placed in the trachea. The patient was oxygenated and the trach was suctioned. The trach was then changed over a bougie. The trach site was only capable of accomodating a #6 Shiley, cuffed ETT. The trach tube was then sutured in place and was secured with a neck strap. Once the trach was in place, a Chest X Ray was obtained. At this point, direct laryngoscopy was performed with the findings noted above. Once this was accomplished, the procedure was terminated and control of the patient was returned to anesthesia. The patient was then returned to the ER for transport. There were no known complications present at the end of the procedure and the patient was in stable condition.
--- NOTE | 2023-03-04 22:28 | XRR_ITS ---
PROCEDURE INFORMATION: Exam: XR Chest Exam date and time: 03/04/2023 10:28 PM Age: 42 years old Clinical indication: Device placement; Chest tube; Prior surgery; Surgery date: Post-operative (0-2 days); Surgery type: Trach; Additional info: Chest tube placement TECHNIQUE: Imaging protocol: Radiologic exam of the chest. Views: 1 view. COMPARISON: CR XR chest 1V portable [id number] 03/04/2023 10:07 PM FINDINGS: Tubes, catheters and devices: Tracheostomy tube seen. Lungs: Bilateral largely upper lobe field airspace opacities. Pleural spaces: Right-sided chest tube over the mid thorax with a pneumothorax again seen markedly decreased in size compared to prior exam on the 2nd provided image, currently with 7.4 mm separation between the lung and pleura Heart/Mediastinum: Cardiomegaly. Bones/joints: Unremarkable. XR/XR chest 1V portable [id number] IMPRESSION: 1. Right-sided chest tube over the mid thorax with a pneumothorax again seen markedly decreased in size compared to prior exam on the 2nd provided image, currently with 7.4 mm separation between the lung and pleura 2. Cardiomegaly. 3. Bilateral largely upper lobe field airspace opacities. 4. Tracheostomy tube seen.
--- NOTE | 2023-03-04 22:30 | ANE.PACU2 ---
Inpatient post-anesthesia follow up: Airway intact: No Vital signs: Temperature 97.7 F Pulse Rate 82 Respiratory Rate 40 Blood Pressure 128/61 Pulse Oximetry 92 Oxygen Delivery Me thod Room Air Oxygen Flow Rate Fraction of Inspir ed Oxygen 100 Hydration adequate: Yes Nausea and vomiting: No Pain level: 1 Mental status: Altered Additional Comments: trach -sedated
[2023-03-04] MEDS: ketamine 100 mg/mL Inj 5 mL 50 MG IVP (22:35)
[2023-03-04] MEDS: lidocaine 2% INJ 20 mL INJECTION (22:35)
[2023-03-04] MEDS: lidocaine-epi 2% 20 mL INJ INJECTION (22:36)
--- NOTE | 2023-03-04 22:38 | PC.NURSE ---
REPORT CALLED TO Sharon SCHAEFER RN IN THE ER AT [phone].
[2023-03-04] MEDS: fentaNYL 1,000 MCG/100 ML BAG 2.5 MCG IV (22:40)
[2023-03-04] MEDS: propofol 1,000 MG/100 ML INJ 2.99 MG IV (22:50)
--- NOTE | 2023-03-04 22:55 | ECG_ITS ---
[facility] Test Date: 2023-03-04 Pat Name: Niko Cruz Department: Room: Gender: Male Hand Picker: : [phone] Requested By: Pretty Luong Order Number: [id number] Mavis MD: Lisa Valderrama M.D. Measurements Intervals [place] Rate: 87 P: 65 TX: 136 QRS: 61 QRSD: 88 T: -13 QT: 355 QTc: 429 Interpretive Statements SINUS RHYTHM NONSPECIFIC T-WAVE ABNORMALITY No previous ECG available for comparison Electronically Signed On 03-05-2023 10:09:04 [employer]IVE [employer]IE[employer] by Lisa Valderrama M.D. [id number]
[2023-03-04] MEDS: dexmedeTOMIDine 0.9 % NaCL 400 MCG/100 ML PREMIX (23:21)
[2023-03-05] VITALS: BP 137/102; PULSE 103; RESP 29; O2SAT 95
[2023-03-05 00:15] VITALS: BP 116/70; PULSE 92; RESP 19; O2SAT 92
[2023-03-05 00:30] VITALS: BP 107/64
--- NOTE | 2023-03-05 00:45 | PC.NURSE ---
pt intubation pt had physician, nurses and resp at bedside for intubation. 1944
[2023-03-05 00:46] VITALS: BP 128/61; PULSE 82; RESP 40
== END 2023-03-05 00:50 | disposition short-term general hospital (02) ==
PROVIDERS: Specialist; Emergency Provider Emergency Medicine
DX: J39.0 Retropharyngeal and parapharyngeal abscess (principal)
CPT/HCPCS: 31500; 32551; 70491; 71045; 80053; 85025; 87040; 93005; 94002; 94640; 94799; 96365; 96366; 96367; 96372; 96375; 99291; J0171; J0330; J1100; J1200; J2060; J2250; J2405; J2704; J2930; J3010; J3490; J7030; Q9967

== ENCOUNTER 2023-07-30 11:25 | Emergency (ER) | payer SELFPAY ==
[2023-07-30 11:31] VITALS: BP 189/104; PULSE 104; RESP 17; TEMP 36.7; O2SAT 93; BMI 35.2
--- NOTE | 2023-07-30 13:03 | ED_ITS ---
HPI - Extremity Injury (Upper) General: Chief Complaint: Extremity Injury, Upper Stated Complaint: right arm pain Time Seen by Provider: 07/30/23 12:54 Source: patient Mode of arrival: ambulatory Limitations: no limitations History of Present Illness: Patient is a nice 43-year-old male presents to ED today with a complaint of pain to his right elbow and right upper arm that he sustained just prior to arrival. Patient states he was lifting something heavy and heard a pop pop pop near his right AC joint. He states since that time he has had pain. MD complaint: injury to: right, arm and elbow Onset (ago): hour(s) Other injuries: none Handedness: right Place: home Severity: moderate Relieving factors: immobilization Exacerbating factors: movement of extremity Associated symptoms: Reports no associated symptoms Review of Systems Musc: Reports: extremity pain and joint pain; Denies: extremity swelling, joint swelling, joint redness or joint warmth Neuro: Denies: numbness in extremities or sensory changes PFS ED PFSH: Medical History No significant past medical history Surgical History No significant past surgical history Social History Alcohol intake: current Alcohol intake frequency: few times a month Physical Exam Const: COMMON NORMALS: no acute distress, patient oriented x3, no limitations, alert and well nourished Extremity: COMMON NORMALS: capillary refill normal GENERAL: Yes normal exam except as noted RIGHT UPPER EXTREMITY: Yes elbow joint (slight deformity just proximal concerning for bicep rupture) Right elbow: Yes ROM (normal but reporting pain) and Yes neurovascular exam (normal) OTHER: + provoking maneuvers for bicep tendon r upture/tendinopathy Neuro: COMMON NORMALS: patient oriented x3, moves all extremities, no focal motor deficits and no sensory deficits noted SENSORIUM/ORIENTATION: Yes alert Course Vital Signs: Vital signs: Vital Signs Temperature 98.1 F 07/30/23 11:31 Pulse Rate 104 H 07/30/23 11:31 Respiratory Rate 17 07/30/23 11:31 Blood Pressure 189/104 07/30/23 11:31 Pulse Oximetry 93 07/30/23 11:31 Oxygen Delivery Me thod Room Air 07/30/23 11:31 MDM - Extremity Injury (Upper) Medical Decision Making History and physical examination concerning for a distal bicep rupture. Patient will referred to orthopedics for further evaluation/treatment options. Medical Records I reviewed the patient's medical records. No radiology studies performed this visit Discharge Plan Discharge Patient Disposition: Home Clinical Impression: Biceps rupture, distal Qualifiers: Encounter type: initial encounter Laterality: right Qualified Code(s): S46.211A - Strain of muscle, fascia and tendon of other parts of biceps, right arm, initial encounter Condition: Stable Prescriptions: New ibuprofen 800 mg tablet 800 mg PO Q8H PRN (Reason: pain) Qty: 20 0RF hydrocodone-acetaminophen 5-325 mg tablet 1 tab PO Q6H PRN (Reason: pain) Qty: 14 0RF No Action Cipro 500 mg tablet 500 mg PO BID Qty: 14 0RF oxycodone 5 mg tablet 5 mg PO Q6H PRN (Reason: pain) Qty: 10 0RF Discharge Orders: Discharge ED (Routine); Ordered 07/30/23 Ordered By: Marialuisa Flores Patient Instructions: Biceps Tendon Rupture, Opioid Safety, Pain Management Activity Restrictions/Additional Instructions: As we discussed I am concerned about a possible bicep tendon rupture. I would like you to follow-up with orthopedics. Case management should reach out to you shortly to help set you up with this follow-up appointment. In the meantime you need to ice the extremity and elevate as well. Limit lifting or repetitive use. You may use the anti-inflammatory pain medication prescribed to you as well as the hydrocodone for severe/breakthrough pain. Coding Level of Care Code ED Retirement Benefits Specialist for Joshua Cantu
--- NOTE | 2023-07-30 16:33 | DCPLANNER ---
Message sent to Ortho for follow up:concerned about a possible bicep tendon rupture
== END 2023-07-30 13:14 | disposition home or self-care (01) ==
PROVIDERS: Emergency Provider Physician Assistant
DX: S46.211A Strain of muscle, fascia and tendon of other parts of biceps, right arm, initial encounter (principal); Z79.899 Other long term (current) drug therapy; X50.0XXA Overexertion from strenuous movement or load, initial encounter
CPT/HCPCS: 99281

== ENCOUNTER 2024-03-04 13:32 | Emergency (ER) | payer SELFPAY ==
[2024-03-04 13:51] VITALS: BMI 37.8
--- NOTE | 2024-03-04 15:33 | CTR_ITS ---
PROCEDURE INFORMATION: Exam: CT Neck With Contrast Exam date and time: 03/04/2024 3:51 PM Age: 43 years old Clinical indication: Painful swallowing; Prior surgery; Surgery date: 6+ months; Surgery type: HX of trachea; Additional info: Trouble swallowing, HX of retropharyngeal abscess TECHNIQUE: Imaging protocol: Computed tomography of the neck with contrast. Radiation optimization: All CT scans at this facility use at least one of these dose optimization techniques: automated exposure control; mA and/or kV adjustment per patient size (includes targeted exams where dose is matched to clinical indication); or iterative reconstruction. Contrast material: OMNI 350; Contrast volume: 100 ml; Contrast route: INTRAVENOUS (IV); COMPARISON: CT neck w con* [id number] 03/04/2023 6:39 PM RADIATION DOSE METRICS: Total DLP (mGy-cm): 338.42 FINDINGS: Paranasal sinuses: Right maxillary sinus mucous retention cysts. Mucosal thickening in the left maxillary sinus. Salivary glands: Normal. Glands are normal in size. Pharynx: Unremarkable. No significant tonsillar enlargement. Previously seen ill-defined masslike area of hypoattenuation has resolved in the interval. Prevertebral and retropharyngeal spaces: Small to moderate ill-defined edema within the retropharyngeal space. No discrete fluid collection. Larynx: Unremarkable. Epiglottis is normal. Thyroid: Normal. No enlarged or calcified nodules. Trachea: Visualized trachea is unremarkable. Lungs: Unremarkable as visualized. Lymph nodes: Unremarkable. No lymphadenopathy. Bones/joints: Unremarkable. No acute fracture. Soft tissues: Unremarkable. No significant soft tissue swelling. CT/CT neck w con* [id number] IMPRESSION: 1. Ill-defined edema in the retropharyngeal space likely represents an infectious/inflammatory process. No discrete fluid collection to suggest abscess at this time. Consider short interval follow-up imaging to re-evaluate as clinically warranted. 2. Previously seen masslike enlargement along the right epiglottis has resolved in the interval.
--- NOTE | 2024-03-04 15:34 | W.ED.GENADLT ---
HPI - General Adult General: Chief complaint: General Medical Stated complaint: trouble swollowing Time Seen by Provider: 03/04/24 15:26 Source: patient Mode of arrival: ambulatory Limitations: no limitations History of Present Illness: Patient is a 43-year-old male presents the emergency department with trouble swallowing breathing today. Back in March 04, 2023, he was seen here in the emergency department for the same symptoms, where he was found to have mass in his throat, was subsequently transferred to [facility] after tracheal intubation here at [facility]. Records are attempting to be gathered at this time. Patient states he is having the same symptoms, however he is still having normal breathing unlike last time, is just here to get checked out. He is not having any fever, he can handle his own secretions, and no pain with swallowing. No other symptoms at this time, O2 saturations normal. MD complaint: Trouble swallowing Onset (ago): hour(s) Pain Consistency: constant Exacerbating factors: other (Attempting to swallow) Associated symptoms: Reports no associated symptoms; Deny chest pain, dyspnea, headache(s), nausea, rash, palpitations or vomiting Treatments prior to arrival: none Related Data Previous Rx's Medication Instructions Recorded amoxicillin 875 mg-potassium 1 tab PO BID 10 days #20 tabs 03/04/24 clavulanate 125 mg tablet prednisone 20 mg tablet 60 mg (3 x 20 mg) PO ONCE 5 days 03/04/24 #15 tabs Allergies Allergy/AdvReac Type Severity Reaction Status Date / Time No Known Allergies Allergy Verified 03/04/23 17:19 Review of Systems General: Reports: 10 or more systems reviewed and unremarkable except in HPI and below Const: Denies: fever(s), chills or fatigue Eyes: Denies: change in vision ENMT: Reports: other (Difficulty swallowing); Denies: throat pain, odynophagia, ear or mastoid pain or nasal discharge Card: Denies: chest pain, palpitations, swelling of feet/ankles or lightheadedness Resp: Denies: dyspnea, productive cough or wheezing GI: Denies: abdominal pain, nausea, vomiting, diarrhea or constipation : Denies: flank pain, difficulty urinating, dysuria or urinary frequency Musc: Denies: neck pain, back pain or joint pain Skin/Breast: Denies: rash Neuro: Denies: headache(s), numbness in extremities or weakness in extremities PFSH ED PFSH: Medical History No significant past medical history Surgical History No significant past surgical history Social History Alcohol intake: current Alcohol intake frequency: few times a month Physical Exam Const: COMMON NORMALS: no acute distress and no limitations GENERAL APPEARANCE: cooperative, comfortable and well developed ORIENTATION/CONSCIOUSNESS: Yes awake OTHER: No obvious changes to his voice such as muffling or hot potato voice HENMT: COMMON NORMALS: normocephalic, atraumatic, hearing grossly normal bilaterally and moist oral mucous membranes HEAD & SCALP: normocephalic and atraumatic OTHER: Overall difficult to evaluate posterior oropharynx due to his neck circumference and anatomy, uvula does appear midline at this time Eye: COMMON NORMALS: Equal, round and reactive pupils present, EOMs intact bilaterally and conjunctivae normal CONJUNCTIVA: Yes conjunctivae normal PUPIL: Yes Equal, round and reactive pupils present Neck/C-Spine: COMMON NORMALS: full ROM, no lymphadenopathy, supple, no meningeal signs, no JVD and Thyroid normal GENERAL: Yes normal visual inspection, Yes trachea midline and No anterior neck swelling THYROID: Thyroid normal CERVICAL SPINE: Yes cervical ROM normal Resp: COMMON NORMALS: normal respiratory effort, No retractions, No use of accessory muscles and clear to auscultation bilaterally AUSCULTATION: clear to auscultation bilaterally OTHER: No respiratory distress Cardio: COMMON NORMALS: no JVD, regular rate, regular rhythm, No clicks present (Cardio), No murmurs present (Cardio) and No rub (Cardio) RATE: regular rate RHYTHM: regular rhythm Extremity: COMMON NORMALS: normal to inspection, full ROM and capillary refill normal Neuro: MENINGEAL SIGNS: Yes no meningeal signs Psych: COMMON NORMALS: mental status grossly normal and Normal thought process present THOUGHT PROCESS: Normal thought process present Skin: COMMON NORMALS: no rashes or lesions noted GENERAL SKIN EXAM: no rashes or lesions noted Course Vital Signs: Vital signs: Vital Signs Pulse Rate 95 03/04/24 16:56 Blood Pressure 142/84 03/04/24 16:56 Pulse Oximetry 96 03/04/24 16:56 MDM - General Adult Medical Decision Making Patient presented with trouble swallowing, a year ago on this date had trouble swallowing with pain with neck movements and change of voice, subsequently had concerning CT for retropharyngeal abscess/other mass and was emergently tracheally intubated after he was losing his airway. He had spent a couple of weeks at [facility] ICU where he saw ENT, was discharged home with what was thought to be angioedema. States he had been okay up until today when he noticed the slight difficulty in swallowing, however was able to handle secretions and swallow food and drink. O2 and respiratory status has been completely normal throughout ED stay. Basic labs obtained did not show anything infectious and were normal. Neck CT showing some edema in the retropharyngeal space that could be infectious or inflammatory, however no suggestions of an abscess in the previously seen mass from a year ago was no longer there. However with the concerning edema and his concerning history, I spoke with Dr. Drew, ENT at [facility] in [place] who handled patient's case a year ago. He had stated that this could represent early angioedema, and to treat with steroids and could potentially add antibiotics to cover for anything infectious. He does highly recommend a very close follow-up with PCP and/or ENT, preferably tomorrow or Saturday. Patient was given 10 mg of Decadron to the IV and upon recheck, states that he was completely asymptomatic. Will give him dose of Unasyn here, treat with Augmentin at home. Will treat with prednisone at home and have him closely follow-up as discussed. He is comfortable with this plan. With the patient and spouse in the room, strict return precautions were given for the patient to return to the emergency department immediately. This included any worsening of trouble swallowing, any trouble breathing at all, any painful neck movements, or any fevers. Also with inability to tolerate saliva and or liquids, encouraged to return immediately for prompt ENT transfer. Patient agrees with this plan and he is provided number to call to schedule follow-up with ENT, as he does not have primary care. Discussed case briefly with Dr. Luong. Lab Data 03/04/24 15:46 03/04/24 15:[address] 03/04/24 15:33 IMPRESSION: 1. Ill-defined edema in the retropharyngeal space likely represents an infectious/inflammatory process. No discrete fluid collection to suggest abscess at this time. Consider short interval follow-up imaging to re-evaluate as clinically warranted. 2. Previously seen masslike enlargement along the right epiglottis has resolved in the interval. Laboratory Results WBC 10.95 10^3/uL (3.29-11.43) 03/04/24 15:46 RBC 5.56 10^6/uL (3.85-5.65) 03/04/24 15:46 Hgb 16.30 g/dL (11.27-16.99) 03/04/24 15:46 Hct 48.8 % (37-53) 03/04/24 15:46 MCV 87.8 fl (82-101) 03/04/24 15:46 MCH 29.3 pg (27-33) 03/04/24 15:46 MCHC 33.4 g/dL (30-55) 03/04/24 15:46 RDW 13.4 % (12.1-15.1) 03/04/24 15:46 Plt Count 275 10^3/cmm (157-399) 03/04/24 15:46 MPV 10.4 fL (7.4-10.4) 03/04/24 15:46 Neut % (Auto) 66.4 % 03/04/24:46 Lymph % (Auto) 25.0 % 03/04/24:46 [place] % (Auto) 7.6 % 03/04/24 15:46 Eos % (Auto) 0.5 % 03/04/24:46 Baso % (Auto) 0.1 % 03/04/24:46 Neut # (Auto) 7.27 10^3/uL (1.8-7.7) 03/04/24 15:46 Lymph # (Auto) 2.7 10^3/uL (0.8-4.8) 03/04/24:46 [place] # (Auto) 0.8 10^3/uL (0.2-0.9) 03/04/24 15:46 Eos # (Auto) 0.1 10^3/uL (0.0-0.8) 03/04/24:46 Baso # (Auto) 0.0 10^3/uL (0.0-0.1) 03/04/24 15:46 Nucleated RBC % (auto) 0 % 03/04/24 15:46 Nucleated RBCs # 0.0 /100WBC 03/04/24 15:46 Sodium 138 mmol/L (136-145) 03/04/24 15:46 Potassium 4.5 mmol/L (3.5-5.1) 03/04/24 15:46 Chloride 101 mmol/L (98-107) 03/04/24 15:46 Carbon Dioxide 26 mmol/L (22-29) 03/04/24 15:46 Anion Gap 15.5 (5-19) 03/04/24 15:46 BUN 21 mg/dL (6-20) H 03/04/24 15:46 Creatinine 0.8 mg/dL (0.7-1.2) 03/04/24 15:46 GFR Calculation 106.0 mL/min (90-130) 03/04/24 15:46 Glucose 74 mg/dL (65-115) 03/04/24 15:46 Calculated Osmolality 288 mOsm/kg (285-295) 03/04/24 15:46 Calcium 9.2 mg/dL (8.5-10.5) 03/04/24 15:46 Total Bilirubin 0.3 mg/dL (0.15-1.2) 03/04/24 15:46 AST 17 U/L (0-40) 03/04/24 15:46 ALT 10 U/L (0-41) 03/04/24 15:46 Alkaline Phosphatase 77 U/L (40-130) 03/04/24 15:46 Total Protein 6.9 g/dL (6.6-8.7) 03/04/24 15:46 Albumin 3.9 g/dL (3.5-5.2) 03/04/24 15:46 Globulin 3.0 g/dL (1.3-4.6) 03/04/24 15:46 All radiology interpretation(s) finalized by discharge Discharge Plan Discharge Patient Disposition: Home Clinical Impression: Edema of throat Condition: Stable Prescriptions: New prednisone 20 mg tablet 60 mg PO ONCE 5 Days Qty: 15 0RF amoxicillin-pot clavulanate 875-125 mg tablet 1 tab PO BID 10 Days Qty: 20 0RF Discharge Orders: Discharge ED (Routine); Ordered 03/04/24 Ordered By: Dino Patino Activity Restrictions/Additional Instructions: Call [facility] in the morning to schedule close follow-up appointment. Please take your antibiotics and steroids as prescribed. As we discussed, return immediately with any worsening of symptoms, if you start having fevers, trouble breathing, inability to handle secretions, or any other concerning findings. Coding Level of Care Code ED Sales Service Professional for Joshua Cantu
[2024-03-04 15:58] LABS: Basophils % 0.1 %; Eosinophils # 0.1 10^3/uL (0.0-0.8); Eosinophils % 0.5 %; Hematocrit 48.8 % (37-53); Lymphocytes # 2.7 10^3/uL (0.8-4.8); Mean Corpuscular HGB Conc 33.4 g/dL (30-55); Mean Corpuscular Hemoglobin 29.3 pg (27-33); Mean Corpuscular Volume 87.8 fl (82-101); Mean Platelet Volume 10.4 fL (7.4-10.4); Monocytes # 0.8 10^3/uL (0.2-0.9); Monocytes % 7.6 %; Neutrophils # 7.27 10^3/uL (1.8-7.7); Neutrophils % 66.4 %; Nucleated Red Blood Cells % 0 %; Platelet Count 275 10^3/cmm (157-399); Red Blood Count 5.56 10^6/uL (3.85-5.65); Red Cell Distribution Width 13.4 % (12.1-15.1); White Blood Count 10.95 10^3/uL (3.29-11.43)
[2024-03-04] MEDS: iohexol 350 mg/mL 500 mL Btl (per mL) IV (15:59)
[2024-03-04 16:15] LABS: Alanine Aminotransferase 10 U/L (0-41); Albumin Level 3.9 g/dL (3.5-5.2); Alkaline Phosphatase 77 U/L (40-130); Blood Urea Nitrogen 21 mg/dL (6-20); Calcium 9.2 mg/dL (8.5-10.5); Carbon Dioxide 26 mmol/L (22-29); Chloride 101 mmol/L (98-107); Glucose 74 mg/dL (65-115); Osmolality Calculated 288 mOsm/kg (285-295); Sodium 138 mmol/L (136-145); Total Bilirubin 0.3 mg/dL (0.15-1.2); Total Protein 6.9 g/dL (6.6-8.7)
[2024-03-04 16:17] LABS: Anion Gap 15.5 (5-19); Aspartate Amino Transferase 17 U/L (0-40); Potassium 4.5 mmol/L (3.5-5.1)
[2024-03-04 16:56] VITALS: BP 142/84; PULSE 95; O2SAT 96
[2024-03-04] MEDS: dexamethasone 10 mg/mL INJ IVP (17:29)
[2024-03-04] MEDS: ampicillin-sulbactam 3 GM in sodium chloride 0.9% (plus) 50 ML IV (18:32)
[2024-03-04] MEDS: diphenhydrAMINE 50 mg/mL SDV 1mL IVP (18:32)
[2024-03-04] MEDS: famotidine 20 mg Tablet 40 MG PO (18:32)
[2024-03-04 19:02] VITALS: BP 150/85; PULSE 85; O2SAT 95
== END 2024-03-04 19:03 | disposition home or self-care (01) ==
PROVIDERS: Emergency Medicine; Emergency Provider Physician Assistant
DX: J38.4 Edema of larynx (principal)
CPT/HCPCS: 36415; 70491; 80053; 85025; 96374; 96375; 99285; J0295; J1100; J1200